=== PATIENT | female | born 1965 | race African-American/Black ===

== ENCOUNTER → 2017-04-19 | Outpatient (CLI) | payer OTHER ==
[2016-10-11 13:00] VITALS: BP 153/108
[~2017-04-19] MED LIST: AMOX1TAB61 PO; HYDR115S2 PO
--- NOTE | 2017-04-19 16:08 | KCIC ---
INDICATION: Low back pain. Chronic symptoms that have increased. Right leg pain and numbness in right foot. TECHNIQUE: Sagittal T1, sagittal T2, sagittal STIR, axial T1, and axial T2 sequences are provided. Comparison is made to radiographs from April 04, 2017. FINDINGS: There is 5 mm of anterolisthesis at L4-L5. There is otherwise no malalignment. There is no worrisome marrow lesion. There is fatty replacement of the anterior inferior corner of L4. There is mild disc desiccation greatest at L4-L5 and L5-S1. Disc height is relatively maintained. The conus medullaris is normal in signal intensity and in position. The numbering system assumes 5 lumbar type vertebral bodies. Findings by individual level are as follows: L1-L2, L2-L3: There are minimal disc bulges and facet hypertrophy without canal or foraminal compromise. L3-L4: This is the first level included in the axial plane. There is a disc bulge. There is a left foraminal protrusion. There is mild facet hypertrophy. There is no canal stenosis. There is mild bilateral foraminal narrowing. L4-L5: In addition to the anterolisthesis there is a disc bulge. There is moderate facet and ligamentum flavum hypertrophy with fluid in the facet joints. There is also a synovial cyst on the right measuring 7 x 31 x 11 mm in size. There is mild canal stenosis. There is right lateral recess narrowing. This could explain a right L5 radiculopathy. There is mild foraminal narrowing. L5-S1: Disc bulge and minimal facet hypertrophy are noted without canal stenosis. There is minimal foraminal narrowing. IMPRESSION: 1. Degenerative disc disease as well as facet and ligamentum flavum hypertrophy are noted in the lumbar spine, greatest at L4-L5. In addition, there is a probable right synovial cyst at L4-L5 narrowing the right lateral recess. This could explain a right L5 radiculopathy. Electronically signed by: Dave Flaherty MD (04/19/2017 4:05 PM) [id number]
== END | disposition home or self-care (01) ==
LOC: KCIC MRI 14:40
PROVIDERS: ATTEND Physician Assistant Surgical
DX: M51.36 Other intervertebral disc degeneration, lumbar region (principal); M54.16 Radiculopathy, lumbar region; M79.604 Pain in right leg; R20.0 Anesthesia of skin
CPT/HCPCS: 72148